=== PATIENT | male | born 1950 | race Caucasian/White ===

== ENCOUNTER 2021-07-09 09:37 | Emergency (ER) | payer OTHER ==
[~2021-07-09] VITALS: Ht 182.9 cm; Wt 99.8 kg
[2021-07-09 09:38] VITALS: BP 139/83
[2021-07-09] MEDS ORDERED: INDOMETHACIN 2525 MG PO (10:01)
[2021-07-09] MEDS ORDERED: NORCO5 PO (10:01)
== END 2021-07-09 10:19 | disposition home or self-care (01) ==
LOC: ER 09:37
DX: M10.9 Gout, unspecified (principal); E11.9 Type 2 diabetes mellitus without complications